=== PATIENT | male | born 1960 | race Caucasian/White ===

== ENCOUNTER 2022-01-10 11:04 | Outpatient (CLI) | payer BC, SELFPAY ==
[2022-01-10 15:50] LABS: Cholesterol* 118 mg/dL (90-199); HDL Cholesterol* 28 mg/dL (>=40); LDL Cholesterol Calculated 58 mg/dL (<100); Triglycerides* 161 mg/dL (40-149)
[2022-01-10 16:24] LABS: Creatinine Urine 86.3 mg/dL
[2022-01-10 16:27] LABS: Microalbumin Creatinine Ratio 10 mg/g (0-30); Microalbumin Urine < 1 mg/dL
== END 2022-01-10 11:05 | disposition home or self-care (01) ==
PROVIDERS: PCP Family Medicine; Visit Provider Family Medicine
DX: Z00.00 Encounter for general adult medical examination without abnormal findings (principal); E11.9 Type 2 diabetes mellitus without complications; I10 Essential (primary) hypertension; M10.9 Gout, unspecified; Z13.6 Encounter for screening for cardiovascular disorders
CPT/HCPCS: 80061; 82043; 82570

== ENCOUNTER 2022-05-12 07:43 | Outpatient (CLI) | payer BC, SELFPAY | END 2022-05-12 07:44 | disposition home or self-care (01) | PROVIDERS: PCP Family Medicine; Visit Provider Internal Medicine | DX: Z12.11 Encounter for screening for malignant neoplasm of colon (principal); K63.5 Polyp of colon; K57.30 Diverticulosis of large intestine without perforation or abscess without bleeding | CPT/HCPCS: 45380; 88305; J2250; J3010 ==

== ENCOUNTER 2022-07-20 07:30 | Outpatient (RCR) | payer BC, SELFPAY | END 2022-11-07 10:21 | disposition home or self-care (01) | PROVIDERS: PCP Family Medicine; Visit Provider Family Medicine | DX: M54.50 Low back pain, unspecified (principal); M25.552 Pain in left hip; Z51.89 Encounter for other specified aftercare | CPT/HCPCS: 97110; 97140; 97161 ==

== ENCOUNTER 2022-12-11 17:12 | Outpatient (CLI) | payer BC, SELFPAY ==
[2022-12-11 22:24] LABS: Chloride* 102 mmol/L (96-114)
[2022-12-11 22:25] LABS: Potassium* 4.6 mmol/L (3.6-5.1); Sodium* 139 mmol/L (135-149)
[2022-12-11 22:27] LABS: Cholesterol* 144 mg/dL (90-199)
[2022-12-11 22:28] LABS: Anion Gap 8 mEq/L (7-15); Blood Urea Nitrogen* 16 mg/dL (7-30); Carbon Dioxide* 29 mmol/L (20-32); Estimated Glomerular Filt Rate 86 ml/min; Glucose* 167 mg/dL (60-115); Triglycerides* 179 mg/dL (40-149)
[2022-12-11 22:29] LABS: Calcium* 9.8 mg/dL (8.4-10.6); HDL Cholesterol* 31 mg/dL (>=40); LDL Cholesterol Calculated 77 mg/dL (<100)
[2022-12-11 22:56] LABS: PSA Screen* 0.97 ng/mL (0.10-4.00)
== END 2022-12-11 17:13 | disposition home or self-care (01) ==
PROVIDERS: PCP Family Medicine; Visit Provider Family Medicine
DX: I10 Essential (primary) hypertension (principal); E11.9 Type 2 diabetes mellitus without complications; Z13.9 Encounter for screening, unspecified; Z12.5 Encounter for screening for malignant neoplasm of prostate
CPT/HCPCS: 80048; 80061; 84153

== ENCOUNTER 2023-09-27 12:43 | Outpatient (CLI) | payer BC, SELFPAY ==
--- OUTSIDE RECORDS SUMMARY | 2023-09-27 12:45 | XMS_ITS | Clinical Summary ---
Author Organization [employer] [facility] Address [place], [place] [address] Care Team Providers Care Producer Assistant Name Role Phone [facility], [facility] Unavailable Allergies No known active allergies Medications Medication Sig Dispensed Refills Start Date End Date Status amLODIPine (NORVASC) 10 mg tablet 10 mg. 05/18/2015 Active doxazosin (CARDURA) 2 mg tablet 2 mg. 05/18/2015 Active losartan (COZAAR) 100 mg tablet 100 mg. 05/18/2015 Active allopurinol (ZYLOPRIM) 300 mg tablet 300 mg. 05/18/2015 Active glipiZIDE extended-release (GLUCOTROL XL) 5 mg Extended-Release tablet 5 mg. 07/06/2015 Active metFORMIN (GLUCOPHAGE XR) 500 mg Extended-Release tablet 500 mg. 06/25/2015 Active tiZANidine (ZANAFLEX) 4 mg tablet 4 mg. 06/25/2015 Active oxyCODONE (ROXICODONE) 5 mg immediate release tabletIndications:De generative lumbar spinal stenosis Take 1-2 tablets by mouth every 4 hours if needed for Pain (For moderate pain). 100 tablet 07/25/2015 Active sennosides-docusate, 8.6-50 mg, (SENOKOT S) 8.6-50 mg tabletIndications:De generative lumbar spinal stenosis Take 1-4 tablets by mouth 2 times daily. 100 tablet 07/25/2015 Active oxyCODONE (ROXICODONE) 5 mg immediate release tablet Take 1-2 tablets by mouth every 4-6 hours as needed for pain. 100 tablet 08/02/2015 Active Active Problems Problem Noted Date Diagnosed Date Spinal stenosis, lumbar jaylin on, without neurogenic claudication 07/24/2015 Type 2 diabetes mellitus 07/12/2015 HTN (hypertension) 07/12/2015 Gout 07/12/2015 Degenerative lumbar spinal stenosis 07/12/2015 MARCELINA (obstructive sleep apnea) 07/12/2015 Family History Medical History Relation Name Comments Hypertension Father Stroke Father Cancer Mother Brain Hypertension Sister Relation Name Status Comments Father Mother Sister Social History Tobacco Use Types Packs/Day Years Used Date Smoking Tobacco: Never Smokeless Tobacco: Never Alcohol Use Standard Drinks/Week Comments No 0 (1 standard drink = 0.6 oz pur e alcohol) Sex and Gender Information Value Date Recorded Sex Assigned at Not on file Gender Identity Not on file Sexual Orientation Not on file Obstetrics History Last Filed Vital Signs Vital Sign Reading Time Taken Comments Blood Pressure 126/91 07/25/2015 7:30 AM CDT Pulse 61 07/25/2015 7:30 AM CDT Temperature 36.4 ??C (97.6 ??F) 07/25/2015 7:30 AM CD T Respiratory Rate 16 07/25/2015 7:30 AM CDT Oxygen Saturation 95% 07/25/2015 7:30 AM CDT Inhaled Oxygen Concentration - - Weight 136.8 kg (301 lb 9.4 oz) 07/23/2015 7:11 AM CDT Height 182.9 cm (6') 07/23/2015 7:11 AM CDT Body Mass Index 40.9 07/23/2015 7:11 AM CDT Plan of Treatment Health Maintenance Due Date Last Done Comments Tdap 1972 Depression screening for age 12+ 1973 HIV for age 15-65 1976 BMI (ht and wt on same day) for age 18+ 09/22/1979 Hepatitis C screening for ag e 18-79 09/22/1979 Tetanus booster 1981 Colonoscopy through age 75 2006 Lipids for age 45-75 2006 Zoster (shingles) series for age 50+ (1 of 2) 09/22/2011 COVID-19 vaccine series ( - 2022-24 season) 2022 Influenza for age 50-64 11/18/2023 Pneumococcal series for age 6-64 Aged Out No longer eligible based on patient's age to complete this topic Medical Devices Implanted Type Area Pediatric Anesthesiologist Device Identifier Shelf Expiration Date Model / Serial / Lot Chato Lmbr 60x5.5mm Tsrh 3d Cvd Titnm - [id number] Implanted:Qty: 2 on 07/23/2015 by Cade Norman MD at [facility] Spine Implants N/A: Spine Medtronic Spine/Ortho [id number] / / Set Screw Lmbr Tsrh 3dx - [id number] Implanted:Qty: 6 on 07/23/2015 by Cade Norman MD at [facility] N/A: Spine Medtronic Spine/Ortho [id number]# / / Cnnctr Lmbr Sm Tsrh 3dx Offsettitnm - [id number] Implanted:Qty: 3 on 07/23/2015 by Cade Norman MD at [facility] N/A: Spine Medtronic Spine/Ortho [id number]# / / Cnnctr Lmbr Tsrh 3dx Offsettitnm - [id number] Implanted:Qty: 2 on 07/23/2015 by Cade Norman MD at [facility] N/A: Spine Medtronic Spine/Ortho [id number]# / / Cnnctr Lmbr 90deg Tsrh 3dx Offset Titnm - [id number] Implanted:Qty: 1 on 07/23/2015 by Cade Norman MD at [facility] N/A: Spine Medtronic Spine/Ortho [id number]# / / Screw Lmbr Post 6.5x40mm Tsrh 3dx Og Thin Va - [id number] Implanted:Qty: 6 on 07/23/2015 by Cade Norman MD at [facility] N/A: Spine Medtronic Spine/Ortho [id number] / / Advance Directives * Full Code (Latest Code Status on File) Date Activated Date Inactivated Comments 07/23/2015 4:46 PM 07/25/2015 2:23 PM * Full Code Date Activated Date Inactivated Comments 07/23/2015 6:03 AM 07/23/2015 4:46 PM Care Teams Producer Assistant Relationship Specialty Start Date End Date [facility] - [facility] 07/20/15
--- OUTSIDE RECORDS SUMMARY | 2023-09-27 12:45 | XMS_ITS | Continuity of Care Document ---
Author Organization [facility] Address [address] [place] [address] Phone Care Team Providers Care Roughener Name Role Phone Cade Norman MD Unavailable Unavailable Allergies, Adverse Reactions, Alerts Substance Reaction Status Criticality No Known Allergies Active No Inform ation Medications Medication Instructions Dosage Effective Dates (start - stop) Status Comments NORVASC (unknown strength) Not Available - Active LOSARTAN POTASSIUM (unknown strength) Not Available - Active [place] 5 mg-325 mg tablet take 1 - 2 tablet by ORAL route every 8 hours as needed for pain - No Longer Active TIZANIDINE HCL 2 MG TABLET TAKE 1 TABLET BY MOUTH EVERY 8 HOURS NEEDED FOR SPASMS MAX OF 3 TABS IN 24 HRS - No Longer Active Senna Plus 8.6 mg-50 mg tablet take 1 - 4 Tablet by ORAL route 2 times every day prn constipation 1-4 Tablet - No Longer Active GABAPENTIN (unknown strength) Not Available - No Longer Active ALLOPURINOL (unknown strength) Not Available - No Longer Active Procedures Procedure Date Office/Outpatient Visit,Est, Mod 2017 Office/Outpatient Visit,Est, Mod 2016 Postop Followup Visit Postop Followup Visit Lumbar Spine Fusion, Posterolateral Spine Fusion, Each Add'Lvertebra 2015 Decompress Lumbar Spinalcord Seg 2015 Decompress Added Spinal Cord Segmnt Insert Spine Seg Fix, Post, 3-6 Seg Autograft, Spine Surgery, Local 016 Office/Outpatient Visit,Est, Mod 2015 Office/Outpatient Visit,New, Mod 2015 Advance Directives Directive Yes / No Effective Date File Name No Information Encounters Encounter Description Practice Location Reason(s) For Visit Diagnoses Date Provider Providers Copied on Encounter Office/Outpa tient Visit,Est, Mod [facility], [address], [place], [place], [address] , [place] tel: [phone] [facility] Arthrodesis status Ester Mohamud. [facility], [address], [address], [place], [place], [address] , [place]. tel: [phone] Referring Provider: Cade Nagy, [facility] [address], [address], [place], [address] . tel:[phone] Office/Outpa tient Visit,Est, Mod [facility], [address], [place], [place], [address] , [place] tel: [phone] [facility] Arthrodesis status Ester Mohamud. [facility], [address], [address], [place], [place], [address] , [place]. tel: [phone] Referring Provider: Referring Self, [address] [facility] [address], [place], [address]. tel:[phone] [facility], [address], [place], [place], [address] , [place] tel: [phone] [facility] No Information Ester Mohamud. [facility], [address], [address], [place], [place], [address] , [place]. tel: [phone] [facility], [address], [place], [place], [address] , [place] tel: [phone] [facility] No Information 6 Esterpaul Mohamud. [facility], [address], [address], [place], [place], [address] , [place]. tel: [phone] Referring Provider: Cade Nagy, [facility] [address], [address], [place], [address] . tel:[phone] [facility], [address], [place], [place], [address] , [place] tel: [phone] [email or web address] No Information 6 Esterpaul Mohamud. [facility], [address], [address], [place], [place], [address] , [place]. tel: [phone] [facility], [address], [place], [address] , [place] tel: [phone] [facility] Encounter for other specified surgical aftercare 6 Esterpaul Mohamud. [facility], [address], [address], [place], [place], [address] , [place]. tel: [phone] Referring Provider: Cade Nagy, [facility] [address], [address], [place], [address] . tel:[phone] [facility], [address], [place], [place], [address] , [place] tel: [phone] [facility] [employer] No Information July-2 6 Ester Mohamud. [facility], [address], [address], [place], [place], [address] , [place]. tel: [phone] [facility], [address], [place], [address] , [place] tel: [phone] [facility] No Information July-0 -201 6 Esterpaul Mohamud. [facility], [address], [address], [place], [place], [address] , [place]. tel: [phone] Referring Provider: Cade Nagy, [facility] [address], [address], [place], [address] . tel:[phone] Office/Outpa tient Visit,Est, Mod [facility], [address], [facility] [place], [address] , [place] tel: [phone] [facility] Spinal stenosis, lumbar regionOther spondylosis, lumbar regionOverweight Feb-2 201 6 Ester Whiteheadothy. [facility], [address], [address], [place], [place], [address] , [place]. tel: [phone] Referring Provider: Cade Nagy, [facility] [address], [address], [facility] [place], [address] . tel:[phone] Office/Outpa tient Visit,New, Mod [facility], [address], [facility] [place], [address] , [place] tel: [phone] [facility] OverweightEssenti al (primary) hypertensionSpina l stenosis, lumbar regionOther intervertebral disc displacement, lumbar region Feb-0 3201 6 Ester Whiteheadothy. [facility], [address], [address], [place], [place], [address] , [place]. tel: [phone] Family History Family Member Type Diagnosis Age At Onset No Information Payers Payer name Insurance type Covered libertarian ID Arnaldo abernathy([place] [id number] [place] [id number] Social History Type Description Quantity Date Captured Comments Alcohol Use Details Unknown Caffeine Use Details Unknown Tobacco Use Status Never smoked tobacco 2017 Smoking Status Never smoker Sex Male Vital Signs Date / Time: Height Weight BMI Pulse Rate Blood Pressure Temperature Respiratory Rate Body Surface Area Head Circumference Head Circ. Percentile Wt./Jose Antonio. Percentile BMI percentile Pulse Ox Inhaled Ox 3:49 PM 71.25 in 137.892 kg (304.00 lbs) 42.1 0 kg/m eter (2) 78 /min 177/110 mm[Hg] Chief Complaint And Reason For Visit No Information Reason For Referral Reason For Referral No Information History Of Present Illness Encounter Date Complaint History Of Prese nt Illness No Information Functional Status Date Functional Assessmen t No Information Instructions Date Instruction Additional Infor wily Blood Pressure Management Relate d to Unspecified Essential Hypertension Instructed to return to General Practitioner timeframe: 1 Month. Related to Unspecified Essential Hypertension Weight Management Education Rela rupert to Overweight Weight management: I nstructed to return to General Practitioner timeframe: 1 Month. Related to Overweight Weight Management Education Rela rupert to Overweight Weight management: I nstructed to return to General Practitioner timeframe: 1 Month. Related to Overweight Blood Pressure Management Relate d to Unspecified Essential Hypertension Instructed to return to General Practitioner timeframe: 1 Month. Related to Unspecified Essential Hypertension Weight Management Education Rela rupert to Overweight Weight management: I nstructed to return to General Practitioner timeframe: 1 Month. Related to Overweight Blood Pressure Management Relate d to Unspecified Essential Hypertension Instructed to return to General Practitioner timeframe: 1 Month. Related to Unspecified Essential Hypertension Weight Management Education Rela rupert to Overweight Weight management: I nstructed to return to General Practitioner timeframe: 1 Month. Related to Overweight Weight Management Education Rela rupert to Overweight Weight management: I nstructed to return to General Practitioner timeframe: 1 Month. Related to Overweight Blood Pressure Management Relate d to Unspecified Essential Hypertension Instructed to return to General Practitioner timeframe: 1 Month. Related to Unspecified Essential Hypertension Assessments Type Assessment Date No Information Patient Care Teams Name Effective Dates (start - stop) Status Members No Information
--- NOTE | 2023-09-27 13:00 | CRLHL7_ITS ---
For Patients: As a result of the Century Cures Act, medical imaging exams and procedure reports are released immediately into your electronic medical record. You may view this report before your referring provider. If you have questions, please contact your health care provider. Indication: LLQ PAIN. EVAL FOR LT GROIN HERNIA Technique: CT pelvis without contrast Please note that all CT scans at this facility use dose modulation, iterative reconstruction, and/or weight-based dosing when appropriate to reduce radiation dose to as low as reasonably achievable. Comparison: None Findings: A right inguinal hernia is present measuring 10.0 cm in craniocaudad dimension and measuring 4.9 x 3.7 cm in transverse dimension. A portion of the right superolateral bladder enters the base of the hernia. No bowel involvement. No fluid collection. No bowel obstruction. No inflammatory changes. Visualized appendix unremarkable. Normal bilateral inguinal lymph nodes. Vascular calcifications are present. Degenerative changes at both hips. Incidental bone island within the left iliac bone. Postoperative changes to the lower lumbar spine. Impression: Large right inguinal hernia containing mostly fat with a small amount of the right superolateral bladder wall. No bowel involvement or fluid collection. Please note that all CT scans at this facility use dose modulation, iterative reconstruction, and/or weight-based dosing when appropriate to reduce radiation dose to as low as reasonably achievable. Dictated by Eliecer Hughes MD @ 09/29/2023 7:19:30 PM (Electronically Signed)
== END 2023-09-27 12:44 | disposition home or self-care (01) ==
LOC: CT 12:43
PROVIDERS: PCP Family Medicine; Visit Provider Surgery
DX: R10.32 Left lower quadrant pain (principal); K40.90 Unilateral inguinal hernia, without obstruction or gangrene, not specified as recurrent
CPT/HCPCS: 72192

== ENCOUNTER 2023-10-18 11:45 | Outpatient (CLI) | payer BC, SELFPAY ==
--- OUTSIDE RECORDS SUMMARY | 2023-10-20 12:02 | XMS_ITS | Continuity of Care Document ---
Author Organization [facility] Address [address] [place] [address] Phone Care Team Providers Care Adult Neuropsychologist Name Role Phone Cade Norman MD Unavailable Unavailable Allergies, Adverse Reactions, Alerts Substance Reaction Status Criticality No Known Allergies Active No Inform ation Medications Medication Instructions Dosage Effective Dates (start - stop) Status Comments LOSARTAN POTASSIUM (unknown strength) Not Available - Active NORVASC (unknown strength) Not Available - Active [place] 5 mg-325 mg tablet take 1 - [...] [place], [address], [place], [place], [address] , [place] tel: [phone] [facility] Arthrodesis status Ester Mohamud. [facility], [address], [address], [place], [place], [address] , [place]. tel: [phone] Referring Provider: Cade Nagy, [facility] [address], [address], [place], [address] . tel:[phone] Office/Outpa tient Visit,Est, Mod [facility], [address], [place], [place], [address] , [place] tel: [phone] [facility] Arthrodesis status Ester Mohamud. [facility], [address], [address], [place], [place], [address] , [place]. tel: [phone] Referring Provider: Referring Self, [address] [facility] [address], [place], [address]. tel:[phone] [facility], [address], [place], [place], [address] , [place] tel: [phone] [facility] No Information Ester Mohamud. [facility], [address], [address], [place], [place], [address] , [place]. tel: [phone] [facility], [address], [place], [address] , [place] tel: [phone] [facility] No Information 6 Esterpaul Mohamud. [facility], [address], [address], [place], [place], [address] , [place]. tel: [phone] Referring Provider: Cade Nagy, [facility] [address], [address], [place], [address] . tel:[phone] [facility], [address], [place], [place], [address] , [place] tel: [phone] [employer] No Information 6 Esterpaul Mohamud. [facility], [address], [address], [place], [place], [address] , [place]. tel: [phone] [facility], [address], [place], [address] , [place] tel: [phone] [facility] Encounter for other specified surgical aftercare 6 Esterpaul Mohamud. [facility], [address], [address], [place], [place], [address] , [place]. tel: [phone] Referring Provider: Cade Nagy, [facility] [address], [address], [place], [address] . tel:[phone] [facility], [address], [place], [place], [address] , [place] tel: [phone] [facility] No Information July-2 6 Ester Mohamud. [facility], [address], [address], [place], [place], [address] , [place]. tel: [phone] [facility], [address], [place], [address] , [place] tel: [phone] [facility] No Information July-0 -201 6 Esterpaul Mohamud. [facility], [address], [address], [place], [address] , [place]. tel: [phone] Referring Provider: Cade Nagy, [facility] [address], [address], [place], [address] . tel:[phone] Office/Outpa tient Visit,Est, Mod [facility], [address], [facility] [place], [address] , [place] tel: [phone] [facility] Spinal stenosis, lumbar regionOther spondylosis, lumbar regionOverweight Feb-2 201 6 Ester Whiteheadothy. [facility], [address], [address], [place], [place], [address] , [place]. tel: [phone] Referring Provider: Cade Nagy, [facility] [address], [address], [facility] [place], [address] . tel:[phone] Office/Outpa tient Visit,New, Mod [facility], [address], [facility] [place], [address] , [place] tel: [phone] [facility] OverweightEssenti al (primary) hypertensionSpina l stenosis, lumbar regionOther intervertebral disc displacement, lumbar region Feb-0 3201 6 Ester Whiteheadothy. [facility], [address], [address], [place], [place], [address] , [place]. tel: [phone] Family History Family Member Type Diagnosis Age At Onset No Information Payers Payer name Insurance type Covered republican ID Ar[place]do [place] [id number] [place] [id number] Social History Type Description Quantity Date Captured [...] Information Instructions Date Instruction Additional Infor wily Weight management: I nstructed to return to General Practitioner timeframe: 1 Month. Related to Overweight Weight Management Education Rela rupert to Overweight Instructed to return to General Practitioner timeframe: 1 Month. Related to Unspecified Essential Hypertension Blood Pressure Management Relate d to Unspecified Essential Hypertension Weight management: I nstructed to return to General Practitioner timeframe: 1 Month. Related to Overweight Weight Management Education Rela rupert to Overweight Instructed to return to General Practitioner timeframe: 1 Month. Related to Unspecified Essential Hypertension Blood Pressure Management Relate d to Unspecified Essential Hypertension Instructed to return to General Practitioner timeframe: 1 Month. Related to Unspecified Essential Hypertension Blood Pressure Management Relate d to Unspecified Essential Hypertension Weight management: I nstructed to return to General Practitioner timeframe: 1 Month. Related to Overweight Weight Management Education Rela rupert to Overweight Weight management: I nstructed to return to General Practitioner timeframe: 1 Month. Related to Overweight Weight Management Education Rela rupert to Overweight Instructed to return to General Practitioner timeframe: 1 Month. Related to Unspecified Essential Hypertension Blood Pressure Management Relate d to Unspecified Essential Hypertension Weight management: I nstructed to return to General Practitioner timeframe: 1 Month. Related to Overweight Weight Management Education Rela rupert to Overweight Assessments Type Assessment Date No Information Patient Care Teams Name Effective Dates (start - stop) Status Members No Information
--- OUTSIDE RECORDS SUMMARY | 2023-10-20 12:02 | XMS_ITS | Clinical Summary ---
Author Organization [employer] [facility] Address [place], [place] [address] Care Team Providers Care Thermometer Maker Name Role Phone [facility]hemy, [facility] Unavailable Allergies [...] this topic Medical Devices Implanted Type Area Slide Developer Device Identifier Shelf Expiration Date Model / Serial / Lot Chato Lmbr 60x5.5mm Tsrh 3d Cvd Titnm - [id number] Implanted:Qty: 2 on 07/23/2015 by Cade Norman MD at [facility] Spine Implants N/A: Spine Medtronic Spine/Ortho [id number] / / Set Screw Lmbr Tsrh 3dx - [id number] Implanted:Qty: 6 on 07/23/2015 by Cade Norman MD at [facility] N/A: Spine [employer]tronic Spine/Ortho [id number]# / / Cnnctr Lmbr Sm Tsrh 3dx Offsettitnm - [id number] Implanted:Qty: 3 on 07/23/2015 by Cade Norman MD at [facility] N/A: Spine [employer]onic Spine/Ortho [id number]# / / Cnnctr Lmbr Tsrh 3dx Offsettitnm - [id number] Implanted:Qty: 2 on 07/23/2015 by Cade Norman MD at [facility] N/A: Spine [employer] Spine/Ortho [id number]# / / Cnnctr Lmbr 90deg Tsrh 3dx Offset Titnm - [id number] Implanted:Qty: 1 on 07/23/2015 by Cade Norman MD at [facility] N/A: Spine [employer] Spine/Ortho [id number]# / / Screw Lmbr Post 6.5x40mm Tsrh 3dx Og Thin Va - [id number] Implanted:Qty: 6 on 07/23/2015 by Cade Norman MD at [facility] N/A: Spine [employer] Spine/Ortho [id number] / / Advance Directives * Full Code (Latest Code Status on File) Date Activated Date Inactivated Comments 07/23/2015 4:46 PM 07/25/2015 2:23 PM * Full Code Date Activated Date Inactivated Comments 07/23/2015 6:03 AM 07/23/2015 4:46 PM Care Teams Thermometer Maker Relationship Specialty Start Date End Date [facility] - [facility] 07/20/15
== END 2023-10-18 11:46 | disposition home or self-care (01) ==
LOC: NFLDREF 10-20 12:00
PROVIDERS: PCP Family Medicine; Referring Provider Family Medicine; Visit Provider Family Medicine
DX: I10 Essential (primary) hypertension (principal); E78.2 Mixed hyperlipidemia
CPT/HCPCS: 80048; 80061; 85025

== ENCOUNTER 2023-10-29 06:01 | Day surgery (SDC) | payer BC, SELFPAY ==
[2023-10-29] VITALS (12 sets, daily range): BP systolic 139–180; BP diastolic 77–95; PULSE 62–81; RESP 14–17; TEMP 36.1–36.6; O2SAT 93–97; BMI 37.6
[2023-10-29] MEDS: LACTATED RINGERS 1000 ML 1,000 ML 100 ML IV (06:10)
--- OUTSIDE RECORDS SUMMARY | 2023-10-29 06:10 | XMS_ITS | Continuity of Care Document ---
Author Organization [facility] Address [address] [place] [address] Phone Care Team Providers Care Employment Security Officer Name Role Phone Cade Norman MD Unavailable Unavailable Allergies, Adverse Reactions, Alerts Substance Reaction Status Criticality No Known Allergies Active No Inform ation Medications Medication Instructions Dosage Effective Dates (start - stop) Status Comments NORVASC (unknown strength) Not Available - Active LOSARTAN POTASSIUM (unknown strength) Not Available - Active Milford 5 mg-325 mg tablet take 1 - [...] [place], [address], [place], [place], [id number] , [place] tel: [phone] [facility] Arthrodesis status Ester Mohamud. [facility], [address], [address], [place], [place], [address] , [place]. tel: [phone] Referring Provider: Cade Nagy, [facility] [address], [address], [place], [address] . tel:[phone] Office/Outpa tient Visit,Est, Mod [facility], [address], [place], [place], [id number] , [place] tel: [phone] [facility] Arthrodesis status Ester Mohamud. [facility], [address], [address], [place], [place], [address] , [place]. tel: [phone] Referring Provider: Referring Self, [address] [facility] [address], [place], [address]. tel:[phone] [facility], [address], [place], [place], [address] , [place] tel: [phone] [facility] No Information Ester Mohamud. [facility], [address], [address], [place], [place], [address] , [place]. tel: [phone] [facility], [address], [place], [place], [address] , [place] tel: [phone] [facility] No Information 6 Esterpaul Mohamud. [facility], [address], [address], [place], [place], [address] , [place]. tel: [phone] Referring Provider: Cade Nagy, [facility] [address], [address], [place], [address] . tel:[phone] [facility], [address], [place], [place], [address] , [place] tel: [phone] [employer] No Information 6 Esterpaul Mohamud. [facility], [address], [address], [place], [place], [address] , [place]. tel: [phone] [facility], [address], [place], [place], [address] , [place] tel: [phone] [facility] Encounter for other specified surgical aftercare 6 Esterpaul Mohamud. [facility], [address], [address], [place], [place], [address] , [place]. tel: [phone] Referring Provider: Cade Nagy, [facility] [address], [address], [place], [address] . tel:[phone] [facility], [address], [place], [place], [address] , [place] tel: [phone] [facility] [employer] No Information July-2 6 Ester Mohamud. [facility], [address], [address], [place], [place], [address] , [place]. tel: [phone] [facility], [address], [place], [place], [address] , [place] tel: [phone] [facility] No Information July-0 -201 6 Esterpaul Mohamud. [facility], [address], [address], [place], [place], [address] , [place]. tel: [phone] Referring Provider: Cade Nagy, [facility] [address], [address], [place], [address] . tel:[phone] Office/Outpa tient Visit,Est, Mod [facility], [address], [facility] [place], [address] , [place] tel: [phone] [facility] Spinal stenosis, lumbar regionOther spondylosis, lumbar regionOverweight Feb-2 201 6 Ester Whiteheadothy. [facility], [address], [address], [place], [place], [address] , [place]. tel: [phone] Referring Provider: Cade Nagy, [facility] [address], [address], [facility], [address] . tel:[phone] Office/Outpa tient Visit,New, Mod [facility], [address], [facility] [place], [address] , [place] tel: [phone] [facility] OverweightEssenti al (primary) hypertensionSpina l stenosis, lumbar regionOther intervertebral disc displacement, lumbar region Feb-0 3201 6 Ester Whiteheadothy. [facility], [address], [address], [place], [place], [address] , [place]. tel: [phone] Family History Family Member Type Diagnosis Age At Onset No Information Payers Payer name Insurance type Covered alliance party [place] abernathy([place] [address] [place] [id number] Social History Type Description Quantity Date Captured [...]
--- OUTSIDE RECORDS SUMMARY | 2023-10-29 06:11 | XMS_ITS | Clinical Summary ---
Author Organization [facility] Address [place], [place] [address] Care Team Providers Care Distribution Associate Name Role Phone Nohemy, [facility] Primary [facility] Provider Unavailable Allergies No [...] this topic Medical Devices Implanted Type Area Bench Machine Operator Device Identifier Shelf Expiration Date Model / Serial / Lot Chato Lmbr 60x5.5mm Tsrh 3d Cvd Titnm - [id number] Implanted:Qty: 2 on 07/23/2015 by Cade Norman MD at [facility] Spine Implants N/A: Spine [employer] Spine/Ortho [id number]# / / Set Screw Lmbr Tsrh 3dx - [id number] Implanted:Qty: 6 on 07/23/2015 by Cade Norman MD at [facility] N/A: Spine [employer] Spine/Ortho [id number]# / / Cnnctr Lmbr Sm Tsrh 3dx Offsettitnm - [id number] Implanted:Qty: 3 on 07/23/2015 by Cade Norman MD at [facility] N/A: Spine [employer] Spine/Ortho [id number]# / / Cnnctr Lmbr Tsrh 3dx Offsettitnm - [id number] Implanted:Qty: 2 on 07/23/2015 by Cade Norman MD at [facility] N/A: Spine [employer] Spine/Ortho [id number]# / / Cnnctr Lmbr 90deg Tsrh 3dx Offset Titnm - [id number] Implanted:Qty: 1 on 07/23/2015 by Cade Norman MD at [facility] N/A: Spine [employer] Spine/Ortho [id number]# / / Screw Lmbr Post 6.5x40mm Tsrh 3dx Og Thin Va - [id number] Implanted:Qty: 6 on 07/23/2015 by Cade Norman MD at [facility] N/A: Spine [employer] Spine/Ortho [id number] / / Advance Directives * Full Code (Latest Code Status on File) Date Activated Date Inactivated Comments 07/23/2015 4:46 PM 07/25/2015 2:23 PM * Full Code Date Activated Date Inactivated Comments 07/23/2015 6:03 AM 07/23/2015 4:46 PM Care Teams Distribution Associate Relationship Specialty Start Date End Date [facility] - General 07/20/15
[2023-10-29] MEDS: SODIUM CHLORIDE 0.9 % (FLUSH) 10 ML SYRINGE IVF (07:19)
[2023-10-29] MEDS: CEFAZOLIN 1 GM inj 3 GM IVP (07:45)
--- NOTE | 2023-10-29 07:45 | W.PM.H&PU ---
History & Physical Update History & Physical Update H&P Reviewed and patient assessed: No changes noted
--- NOTE | 2023-10-29 07:45 | PM.GSPRC ---
Operative Note Date of procedure: 10/29/23 Pre-op diagnosis: Right inguinal hernia Post-op diagnosis: Same Type of Procedure: Laparoscopic right inguinal hernia repair with mesh Indications: The patient is a 63-year-old male who has a known right inguinal hernia. He was having some groin pain on the left. This resolved, workup and exam did not reveal hernia on this side. He was noted to have what appeared to be bladder also within the hernia. He elected to proceed with a right inguinal hernia repair after discussion of risks, benefits and recovery. Procedure Description: After discussing the risks and benefits of the procedure, the patient signed informed consent.? The operative site was marked and the patient was brought to the operating room and placed on the operating table in supine position.? Care was taken to pad the patient's pressure points.?? The patient was then intubated by anesthesia.?? The operative site was then prepped and draped in the usual sterile fashion.? A time-out was then performed. A curvilinear incision was made below the umbilicus. Dissection was carried down to subcutaneous tissue until the anterior rectus fascia was encountered. This was incised off the midline on the right. The rectus muscle fibers were then retracted exposing the posterior fascia. A port with a dissecting balloon was then introduced into the pre-preperitoneal space. This was inflated under direct vision. The balloon was deflated, removed, and a 10 mm working port was placed. The space was insufflated and a 10 mm 30-degree scope was then advanced into the space. Two 5 mm ports were placed in the midline under direct vision. Dissection began on the right side. There was a large amount of preperitoneal fat which was adherent to the lower abdominal wall. Therefore I started my dissection laterally. There did not appear to be an indirect inguinal hernia. The peritoneal edge was dissected free from the cord structures. I then took my dissection medially. As noted previously, a large amount of preperitoneal fat was adherent to the anterior abdominal wall. I knew that there was possibly bladder that was contained within the hernia, therefore I carefully and gently reduced this fat as well as the hernia sac. Once this was done, I was able to expose Anibal's ligament and the pubic bone medially, across midline. Once an appropriate space for the mesh was created, a piece of Bard 3DMax mesh for the appropriate side was placed into the abdomen. This was positioned with the marker pointed medially. This again overlapped the midline given the patient's large direct hernia defect. A Tacker was used to attach the mesh medially at Anibal's ligament, along the anteromedial abdominal wall and and 1 tack laterally with care to avoid the epigastric vessels and stay above the inguinal ligament. A small tear in the peritoneum from the dissection off of the cord structures was used to evacuate accumulated pneumoperitoneum and then closed with clips. Once this was completed the herniated tissue was placed on top of the mesh and the preperitoneal space desufflated under direct vision to ensure the mesh laid flat. 10 mL of 0.5% Marcaine were instilled into the preperitoneal space through a port. The ports were removed. The fascia from the infraumbilical port was closed with 0 Vicryl. The skin incisions were closed with absorbable subcuticular suture. Sterile dressings were then applied. The scrotum was examined to ensure that both testicles were down. Instrument sponge and needle counts were correct at the end of the case. ? The patient was then woken and transported to the recovery area in stable condition. ? The patient tolerated the procedure well. Findings: Large direct right inguinal hernia containing fat and radiographically bladder. Anesthesia: GETA Surgeon: Paola Valverde MD Estimated blood loss (mL): 5 Condition: stable Disposition: PACU
[2023-10-29] MEDS: BUPIVACAINE 0.25% 30 ML INJECTION (08:56)
--- NOTE | 2023-10-29 09:20 | W.ANESCHARGE ---
Anesthesia Charges Start Date/Time Anesthesia Start Date: 10/29/23 Anesthesia Start Time: 07:38 Stop Date/Time Anesthesia Stop Date: 10/29/23 Anesthesia Stop Time: 09:17
--- NOTE | 2023-10-29 09:21 | W.ANESCHARGE ---
Anesthesia Charges Start Date/Time Anesthesia Start Date: 10/29/23 Anesthesia Start Time: 07:38 Stop Date/Time Anesthesia Stop Date: 10/29/23 Anesthesia Stop Time: 09:17
--- NOTE | 2023-10-29 09:23 | W.ANESCHARGE ---
Anesthesia Charges Start Date/Time Anesthesia Start Date: 10/29/23 Anesthesia Start Time: 07:38 Stop Date/Time Anesthesia Stop Date: 10/29/23 Anesthesia Stop Time: 09:17
== END 2023-10-29 10:54 | disposition home or self-care (01) ==
PROVIDERS: PCP Family Medicine; Visit Provider Surgery
PROC: (CPT 49650; principal; 2023-10-29 07:30)
DX: K40.90 Unilateral inguinal hernia, without obstruction or gangrene, not specified as recurrent (principal); E11.9 Type 2 diabetes mellitus without complications; I10 Essential (primary) hypertension; G47.33 Obstructive sleep apnea (adult) (pediatric)
CPT/HCPCS: 49650; 00830; 00840; 00860; 82962; C1781; J0330; J0665; J0690; J1170; J2250; J2704; J2710; J3010; J7120

== ENCOUNTER 2025-02-20 09:08 | Outpatient (CLI) | payer BC, SELFPAY | END 2025-02-20 09:09 | disposition home or self-care (01) | PROVIDERS: PCP Family Medicine; Visit Provider Family Medicine | DX: I10 Essential (primary) hypertension (principal); E11.9 Type 2 diabetes mellitus without complications; E78.2 Mixed hyperlipidemia; Z13.9 Encounter for screening, unspecified | CPT/HCPCS: 80048; 80061; 82043; 82570; 84460; G0103 ==